=== PATIENT | male | born 1980 | race Caucasian/White ===

== ENCOUNTER 2019-06-01 23:09 | Emergency (ER) | payer SELFPAY ==
[~2019-06-01] VITALS: Ht 170.2 cm; Wt 88.0 kg
[2019-06-01 23:12] VITALS: Ht 170.2 cm; Wt 88.0 kg
[2019-06-02 01:14] VITALS: BP 132/92
== END 2019-06-02 01:14 | disposition home or self-care (01) ==
LOC: ED 23:09
DX: K42.9 Umbilical hernia without obstruction or gangrene (principal)
CPT/HCPCS: J1885

== ENCOUNTER 2020-05-25 20:30 | Emergency (ER) | payer OTHER ==
[~2020-05-25] VITALS: Ht 170.2 cm; Wt 88.5 kg
[2020-05-25 20:46] VITALS: Ht 170.2 cm; Wt 88.5 kg
[2020-05-25 21:44] VITALS: BP 133/83
== END 2020-05-25 21:44 | disposition home or self-care (01) ==
LOC: ED 20:30
DX: S63.92XA Sprain of unspecified part of left wrist and hand, initial encounter (principal); W22.8XXA Striking against or struck by other objects, initial encounter; Y93.89 Activity, other specified; Y92.89 Other specified places as the place of occurrence of the external cause; Y99.8 Other external cause status
CPT/HCPCS: Q0092